=== PATIENT | female | born 1970 | race Caucasian/White ===

== ENCOUNTER 2023-12-07 14:41 | Emergency (ER) | payer BC, SELFPAY ==
[2023-12-07 14:58] VITALS: BP 126/53; PULSE 68; RESP 22; TEMP 36.7; O2SAT 94; BMI 45.3
--- NOTE | 2023-12-07 15:10 | XR_ITS ---
PROCEDURE INFORMATION: Exam: XR Left Foot Exam date and time: 12/07/2023 3:04 PM Age: 53 years old Clinical indication: Pain; Foot; Left; Patient HX: Stubbed little toe; Additional info: Injury TECHNIQUE: Imaging protocol: Radiologic exam of the left foot. Views: 1 or 2 views. Total images: 2 COMPARISON: No relevant prior studies available. FINDINGS: Bones/joints: Acute mildly displaced oblique fracture to the shaft of the proximal phalanx of the 5th toe. Mild angulation of the fracture site. No intra-articular extension or joint dislocation. No concerning bone lesions. Small calcaneal enthesophytes at the insertion of the Achilles tendon and plantar fascia. Corticated ossicle distal to the lateral malleolus. Mild degenerative changes of the tarsal articulations. Soft tissues: Soft tissue swelling 5th toe and lateral forefoot. IMPRESSION: Acute fracture proximal phalanx left 5th toe.
--- NOTE | 2023-12-07 15:19 | EXP.UTC ---
Discharge Plan Disposition Patient Disposition: Home, Self-Care Condition: Good Prescriptions Prescriptions: New ibuprofen 800 mg tablet 800 mg PO Q8H PRN (Reason: pain) Qty: 30 0RF No Action atorvastatin 10 mg Tablet 10 mg PO DAILY losartan 25 mg Tablet 25 mg PO DAILY sertraline 25 mg Tablet 25 mg PO DAILY hydroxyzine HCl 10 mg Tablet 10 mg PO DAILY Referrals Follow up/Referrals: Shirley Clement APRN [Primary Care Provider] - See instructions Activity Restrictions/Add. Instructions Additional Instructions/Restrictions: Wear boot when up walking. Call here at the [facility] [phone] for x-ray results in the am. Take medication as prescribed. Clinical Impressions Clinical Impression: Acute pain of left foot Stand Alone Forms Stand Alone Forms: Work/School Release Instructions Patient Instructions: DI for Foot Pain Print Language Print Language: Icelandic Discharge ED Provider: Stacey Stanton [facility] [place] General Stated complaint: dislocated toe on left foot, cough Mode of Arrival: Ambulatory Source of Information: Patient Time Seen by Provider: 12/07/23 15:18 Description of Symptoms (Recalled from Triage Doc. by RN): LEFT PINKY TOE BRUISED AND SWOLLEN, PAINFUL HEENT Symptoms (Recalled from RN notes): No Resp Symptoms (Recalled from RN notes): No Skin Symptoms (Recalled from RN notes): No MS Symptoms (Recalled from RN notes): Yes Functional Status (Recalled from RN notes): HURTS TO WALK History of Present Illness Provider Complaint: Pt reports that hit the left pinky toe and foot on the door jam. She reports that family member pulled on toe to try it back in place. She states that she can barely walk on her left foot due to the pain. Related Data Home Medications ?Medication ?Instructions ?Recorded ?Confirmed atorvastatin 10 mg tablet 10 mg PO DAILY 12/07/23 12/07/23 hydroxyzine HCl 10 mg tablet 10 mg PO DAILY 12/07/23 12/07/23 losartan 25 mg tablet 25 mg PO DAILY 12/07/23 12/07/23 sertraline 25 mg tablet 25 mg PO DAILY 12/07/23 12/07/23 Previous Rx's ?Medication ?Instructions ?Recorded ibuprofen 800 mg tablet 800 mg PO Q8H PRN pain #30 tabs 12/07/23 Allergies Allergy/AdvReac Type Severity Reaction Status Date / Time Penicillins Allergy Unknown Verified 12/07/23 15:02 allergy reaction Worker's Comp Is this a Worker's Comp case?: No [facility] Disclaimer: The information contained in this section may have been updated after the patient was seen, as this information can be updated by other users. Medical History (Updated 12/07/23 @ 16:31 by Stacey Stanton APRN) GERD (gastroesophageal reflux disease) Depression Anxiety Asthma Hypertension COPD (chronic obstructive pulmonary disease) Social History Smoking Status: Current every day smoker alcohol intake: current alcohol intake frequency: holidays/special occasions only current occupational status: employed Travel in the last 8 weeks: None ROS Obtained: Yes All systems reviewed & no additional complaints except as documented Constitutional Constitutional: Reports system reviewed and no additional complaints, except as documented Eyes Eyes: Reports system reviewed and no additional complaints, except as documented ENT Ears, Nose, Mouth, and Throat: Reports system reviewed and no additional complaints, except as documented Cardiovascular Cardiovascular: Reports system reviewed and no additional complaints, except as documented Respiratory Respiratory: Reports system reviewed and no additional complaints, except as documented Gastrointestinal Gastrointestingal: Reports system reviewed and no additional complaints, except as documented Genitourinary Female Genitourinary: Reports system reviewed and no additional complaints, except as documented Musculoskeletal Musculoskeletal: Reports system reviewed and no additional complaints, except as documented, Reports abnormal gait, Reports deformity and Reports joint swelling Integumentary/Breasts Skin/Breast: Reports system reviewed and no additional complaints, except as documented Comments: bruising of left pinky toe and foot Neurologic Neurologic: Reports system reviewed and no additional complaints, except as documented and Reports abnormal gait Endocrine Endocrine: Reports system reviewed and no additional complaints, except as documented Hematologic/Lymphatic Henatologic/Lymphatic: Reports system reviewed and no additional complaints, except as documented Allergic/Immunologic Allergic/Immunologic: Reports system reviewed and no additional complaints, except as documented Physical Exam General General appearance: alert and in no apparent distress Head Head exam: atraumatic and normocephalic Eye Eye exam: Present normal appearance ENT ENT exam: Present normal exam and normal oropharynx Neck Neck exam: Present normal inspection Chest Chest inspection: Present normal inspection and symmetric chest wall rise Respiratory Respiratory exam: Present normal lung sounds bilaterally Cardiovascular Cardiovascular exam: Present regular rate and normal rhythm Abdominal Exam Abdominal exam: Present soft Extremities Exam Extremities exam: Present tenderness and normal capillary refill Expanded Lower Extremity Exam Left: Hip/Pelvis exam: Present normal inspection Upper leg exam: Present normal inspection Knee exam: Present normal inspection Lower leg exam: Present normal inspection Foot/toe exam: Present tenderness, swelling, ecchymosis and deformity Top foot image: 1. toe appears to be turned outward away from other toes with purple/pink/red bruising. 2. bruising and swelling noted Neurovascular/Tendon exam: Present normal capillary refill Gait: observed and limited by pain Back Exam Back exam: Present normal inspection Neurological Exam Neurological exam: Present alert and oriented X3 Psychiatric Psychiatric exam: Present normal affect and normal mood Skin Skin exam: Present warm, dry and intact Lymphatic Lymphatic Findings: no adenopathy Medical Decision Making Medical Records Screening: Per USPSTF and CDC recommendations, given the prevalence of disease in our region, it is our hospital?s policy to screen for HIV and viral Hepatitis for all patients aged 18 and over and those with ongoing risk factors. Brian Inquiry Pt receiving controlled substance: No Brian was queried for this patient: No Vital Signs: 12/07/23 14:58 Temperature 98.1 F Temperature Source Oral Pulse Rate [Left Radial] 68 Respiratory Rate 22 Blood Pressure [Left Arm] 126/53 L Blood Pressure Mean [Left Arm] 77 02 Sat by Pulse Oximetry 94 L Orders (Tests/Meds): ORDERS Category Date Time Status Foot XR left 2 views [XR foot LT 2V] Stat Exams 12/07/23 15:10 Taken
[2023-12-07 16:38] VITALS: BP 126/53; PULSE 68; RESP 22; TEMP 36.7
== END 2023-12-07 16:39 | disposition home or self-care (01) ==
PROVIDERS: Emergency Provider Nurse Practitioner Family; PCP Family Medicine
DX: M79.672 Pain in left foot (principal)
CPT/HCPCS: 73620; 99213; G0381

== ENCOUNTER 2024-08-27 02:12 | Emergency (ER) | payer BC, SELFPAY ==
--- OUTSIDE RECORDS SUMMARY | 2024-07-16 06:30 | XMS_ITS ---
Author Organization [facility] Address [address] [place] [address] Care Team Providers Care City Alderman Name Role Phone Nidhi Rocha Unavailable [phone] Allergies Allergen (clinical drug ingredient) Drug/Non Drug Allergy documented on EMR Reaction Allergy Type Onset Date Status Penicillin unknown Drug Allergy Active REASON FOR VISIT Not Feeling Well, Patient presents today with chest pain and nausea and stomach cramping since lastnight Medications Medication SIG (Take, Route, Frequency, Duration) Notes Start Date End Date Status Azithromycin 250 MG 2 tablets on the first day, then 1 tablet daily for 4 days orally once a day for 5 day(s) 02/27/2019 Not-Taking Coricidin HBP Congestion/Cough 10-200 MG 2 cap(s) orally tid for 5 day(s) 02/27/2019 Not-Taking Losartan Potassium *Please revie w and pick correct strength-formulati on from Medispan options. If intended option is not shown, discontinue and re-order from Quick Search* Active ProAir HFA 108 (90 Base) MCG/ACT 1 -2 puffs as needed Inhalation 6 hrs for 30 days 03/06/2022 Not-Taking predniSONE 20 MG 2 tabs orally once a day for 5 day(s) 02/27/2019 Not-Taking Promethazine-DM 6.25-15 MG/5ML 5 - 10 ml as needed Orally every 6 hrs 03/06/2022 Not-Taking ProAir HFA *Please review a nd pick correct strength-formulati on from Medispan options. If intended option is not shown, discontinue and re-order from Quick Search* Not-Taking hydrOXYzine HCl *Please review a nd pick correct strength-formulati on from Medispan options. If intended option is not shown, discontinue and re-order from Quick Search* Not-Taking Albuterol Sulfate (2.5 MG/3ML) 0.083% 3 mL as needed Inhalation every 6 hrs for 30 days 11/01/2022 Not-Taking Albuterol Sulfate HFA 108 (90 Base) MCG/ACT 1 puff as needed Inhalation every 4 hrs for 30 days 11/01/2022 Active Social History Tobacco Use: Social History Observation Description Date Details (start date - stop date) Current Smoker NA - NA Tobacco Control (Standard) Question Answer Notes Tobacco use: Current smoker How often do you smoke cigarettes? Every day Are you interested in quitting? Thinking about q uitting Additional Findings: Tobacco user e-cigarette Vital Signs Temperature 97.2 degrees Fahrenheit 07/17/19 25 Respiratory Rate 18 /min 07/16/2024 Blood pressure systolic 128 mm Hg 07/17/19 25 Blood pressure diastolic 90 mm Hg 025 Height 064 in 07/16/2024 Weight 0235 lbs 07/16/2024 BMI 40.33 kg/m2 07/16/2024 Oximetry 97 07/16/2024 Encounters Encounter Location Date Provider Diagnosis [address] [id number] 07/16/2024 Nidhi Rocha Chest tightness R07.89 and Shortness of breath R06.02 Assessments Encounter Date Diagnosis (ICD Code) Assessment Notes Treatment Notes Treatment Clinical Notes Section Notes 07/16/2024 Chest tightness (ICD-10 - R07.89) 07/16/2024 Shortness of breath (ICD-10 - R06.02) Shortness of Breath: Care Instructions material was published 07/16/2024 Other Advised to go [facility] ER immediatly for evaluation of symptoms. She verbalized understanding, but does not give definite answer. Advised of the potential implications of avoiding emergency care, including . She verbalized understanding. She requested work note. States that she drove herself here today. Refuses ambulance transportation to nearest ED. Refused to allow me to contact a family or friend for transportation. Patient walked out of clinic after completion of visit. Plan Of Treatment Treatment Notes Assessment Notes Shortness of breath Shortness of Breath: Care Instructions material was published Other Advised to go to [facility] ER immediatly for evaluation of symptoms. She verbalized understanding, but does not give definite answer. Advised of the potential implications of avoiding emergency care, including . She verbalized understanding. She requested work note. States that she drove herself here today. Refuses ambulance transportation to nearest ED. Refused to allow me to contact a family or friend for transportation. Patient walked out of clinic after completion of visit. Next Appt Details Follow Up: Follow up in 3 we eks,As Needed, Reason: Progress Notes * Dilia LEALDOB: [birth year] (54 yo F)Acc No.[id number]:07/16/2024 Progress Notes Patient: Dilia BELL Provider: Nita Rocha APRN :1970 A ge:54 Y S ex:Female Date:07/16/2024 External Visit ID:[id number] 1 Address:[address] [place] [address], [id number] Pcp:Rosina Robertson Subjective: * Chief Complaints: * 1 . Not Feeling Well. 2. Patient presents today with chest pain and nausea and stomach cramping since last night. * HPI: C ardiovascular: 54 year old W/F presents with c/o chest tightness, abdominal cramping, and nausea that started last night. Denies chest pain, SOA, and/or lighthededness/dizziness. Admits that she has had similar symptoms before and the cause was hypertension. * ROS: C ONSTITUTIONAL: no c hills. n o f atigue. b sofia aches y es.?no f ever. g eneral malaise y es. R ESPIRATORY: no s putum. n o w heezing. n o s tridor.?no p ain, c hest tightness. n o h emoptysis. S hortness of breath y es.?dyspnea y es. n o c ough. G ASTROENTEROLOGY: pain y es. n ausea y es. n o v omiting.?no d iarrhea. c onstipation y es. c ramping y es. * Medical History: H [place], Anxiety, COPD per pt, work related-resolved, Hyperlipidemia. * Surgical History: t nicky 1990. * Hospitalization/Major Diagno stic Procedure: D enies Past Hospitalization. * Family History: F ather: alive, healthy. M other: alive, healthy . S iblings: alive. C monica: alive. 3 sister(s) - healthy. 1 son(s) - healthy. . * Social History: G eneral: . v apes x 1.5 month. S igns of Abuse or Neglect: no. .: Are you a: current smoker. Occupation: [employer]. T obacco Use: T obacco Control (Standard) T obacco use: C urrent smoker, H ow often do you smoke cigarettes? E very day, A re you interested in quitting? T hinking about quitting, A dditional Findings: Tobacco user e -cigarette. * Medications: T aking Losartan Potassium , Notes to Pharmacist: *Please review and pick correct strength-formulation from Medispan options. If intended option is not shown, discontinue and re-order from Quick Search*, Taking Albuterol Sulfate HFA 108 (90 Base) MCG/ACT Aerosol Solution 1 puff as needed Inhalation every 4 hrs , Not- Taking ProAir HFA 108 (90 Base) MCG/ACT Aerosol Solution 1 -2 puffs as needed Inhalation 6 hrs , Not-Taking Albuterol Sulfate (2.5 MG/3ML) 0.083% Nebulization Solution 3 mL as needed Inhalation every 6 hrs , Not-Taking ProAir HFA , Notes to Pharmacist: *Please review and pick correct strength-formulation from [employer] options. If intended option is not shown, discontinue and re-order from Quick Search*, Not-Taking hydrOXYzine HCl , Notes to Pharmacist: *Please review and pick correct strength-formulation from Medispan options. If intended option is not shown, discontinue and re-order from Quick Search*, Not-Taking Promethazine-DM 6.25-15 MG/5ML Syrup 5 - 10 ml as needed Orally every 6 hrs , Not-Taking Azithromycin 250 MG Tablet 2 tablets on the first day, then 1 tablet daily for 4 days orally once a day , Not-Taking Coricidin HBP Congestion/Cough 10-200 MG Capsule 2 cap(s) orally tid , Not-Taking predniSONE 20 MG Tablet 2 tabs orally once a day , Medication List reviewed and reconciled with the patient * Allergies: P enicillin: unknown - Allergy. Objective: * Vitals: T emp:97.2, RR:18, BP:128/90, Pain (at time of visit):7/10, LNMP: stud setter, Ht: 064, Wt: 0235, BMI:40.33, Pulse Ox:97. * Examination: F ocused Exam: GENERAL: a lert and oriented x 4, no acute distress, dress appropriate for the environment & temp, well-groomed, appears well. HEAD: s ymmetrical facial features, normocephalic. EYES: c onjunctiva pink w/o inflammation or pallor, sclera white, PERRLA, nystagmus absent, pupil size normal, no discharge. RESPIRATORY: b reath sounds clear throughout, respiration even and unlabored. CARDIO: S 1 & S2 single sounds, no murmurs, gallops, rubs, or clicks, RRR. Assessment: * Assessment: 1. C hest tightness - R07.89 (Primary) 2 . S hortness of breath - R06.02? Plan: * Treatment: 2. O thers Notes: Advised to go to local ER immediatly for evaluation of symptoms. She verbalized understanding, but does not give definite answer. Advised of the potential implications of avoiding emergency care, including . She verbalized understanding. She requested work note. States that she drove herself here today. Refuses ambulance transportation to nearest ED. Refused to allow me to contact a family or friend for transportation. Patient walked out of clinic after completion of visit. ? * Procedure Codes: C DENISER Sending to Test Rack Operator for Code Review * Follow Up: F radha up in 3 weeks,As Needed * Billing Information: * Visit Code: * Procedure Codes: VISUAL SUPERVISOR Sending to Test Rack Operator for Code Review. Care Plan Details* Images * 07.16.2024 ID [email or web address] consent to treat * Sign off status: Completed true * Provider: Nita Rocha APRN Date: 0 07/16/2024 Generated for Trinidad benoit/Rodríguez/[employer] on: 0 08/27/2024 01:32 AM CDT History and Physical Notes * HPI (History of Present Illness) Category Sub-Category Detail Notes Category Not es Cardiovascular 54 year old W /F presents with c/o chest tightness, abdominal cramping, and nausea that started last night. Denies chest pain, SOA, and/or lighthededness/dizziness. Admits that she has had similar symptoms before and the cause was hypertension. Examination Category Sub-Category Detail Notes Category Not es Focused Exam HEAD: symmetrical facial features, normocephalic EYES: conjunctiva pink w/o inflammation or pallor, sclera white, PERRLA, nystagmus absent, pupil size normal, no discharge RESPIRATORY: breath sounds clear throughout, respiration even and unlabored GENERAL: alert and oriented x 4, no acute distress, dress appropriate for the environment & temp, well-groomed, appears well CARDIO: S1 & S2 single sound s, no murmurs, gallops, rubs, or clicks, RRR
[2024-08-27] VITALS (7 sets, daily range): BP systolic 160–192; BP diastolic 75–105; PULSE 73–96; RESP 18–20; TEMP 36.7–36.8; O2SAT 75–97; BMI 36.9
--- OUTSIDE RECORDS SUMMARY | 2024-08-27 02:33 | XMS_ITS | Patient Health Record ---
Author Organization [facility] Address [address] [place] [address] Care Team Providers Care Sales Support Representative Name Role Phone Nidhi Rocha Unavailable [phone] Allergies Allergen (clinical drug ingredient) Drug/Non Drug Allergy documented on EMR Reaction Allergy Type Onset Date Status Penicillin unknown Drug Allergy Active Reason For Referral No Information Medications Medication SIG (Take, Route, Frequency, Duration) Notes Start Date End Date Status Promethazine-DM 6.25-15 MG/5ML 5 - 10 ml as needed Orally every 6 hrs 03/06/2022 Not-Taking Azithromycin 250 MG 2 tablets on the [...] a day for 5 day(s) 02/27/2019 Not-Taking ProAir HFA *Please review a nd [...] 4 hrs for 30 days 11/01/2022 Active Immunizations Vaccine Route Administration Date Status Comme nts z9 FluBLOK Quad 0.5mL PFS (0.5mL Admin) 18 y/o & older Unknown 02/27/2019 Administered z2022 Fluzone Quad PFS (0.5m L Admin) 6 months & older Unknown 03/06/2022 Refused Social History Tobacco Use: Social History Observation Description Date Details (start date - stop date) Current Smoker NA - NA Tobacco Control (Standard) Question Answer Notes Tobacco use: Current smoker How often do you smoke cigarettes? Every day Are you interested in quitting? Thinking about q uitting Additional Findings: Tobacco user e-cigarette Problems Problem Type SNOMED Code ICD Code Onset Dates Problem Status W/U Status Risk Notes Problem Obesity (018648057) Obesity (BMI 30-39.9) (E66.9) Active confirmed Problem Body mass index 40+ - morbidly obese (281412996) BMI 40.0-44.9, adult (Z68.41) Active confirmed Problem Morbid obesity (236586700) Severe obesity (BMI >= 40) (E66.01) Active confirmed Problem Essential hypertension (25841745) Elevated blood pressure reading in office with diagnosis of hypertension (I10) Active confirmed Vital Signs Temperature 97.2 degrees Fahrenheit 07/16/2024 Respiratory Rate 18 /min 07/16/2024 Oximetry 97 07/16/2024 Blood pressure diastolic 90 mm Hg 07/16/2024 Height 064 in 07/16/2024 Blood pressure systolic 128 mm Hg 07/16/2024 Weight 0235 lbs 07/16/2024 BMI 40.33 kg/m2 07/16/2024 Encounters Encounter Location Date Provider Diagnosis [address] [phone] 07/16/2024 Nidhi Rocha Chest tightness R07.89 and Shortness of breath R06.02 Assessments Encounter Date Diagnosis (ICD Code) Assessment Notes Treatment Notes Treatment Clinical Notes Section Notes 07/16/2024 Chest tightness (ICD-10 - R07.89) 07/16/2024 Shortness of breath (ICD-10 - R06.02) Shortness of Breath: Care Instructions material was published 07/16/2024 Other Advised to go t o local ER immediatly for evaluation of symptoms. [...] after completion of visit. Plan Of Treatment Pending Test Test Name Order Date Lipid Panel (IH) 11/24/2016 BLOOD GLUCOSE (Glucometer) Screening() 11/24/2016 Insurance Providers Payer Name Payer Address Payer Phone Subscriber Number Group Number Insured Name Patient Relationship to Insured Coverage Start Date Coverage End Date [facility] [address] [place] [address] [id number] Dilia Borja Self - patient is the insured Medications Administered Medication Instructions Date of Administration Dosage Notes dexAMETHasone Sodium Phosphate 11/01/2022 8 mg Kenalog-40 11/01/2022 40 mg Medical (General) History Medical History History ICD Code HTN Anxiety COPD per pt, work related-resolved Hyperlipidemia Surgical History Surgery Date(Month/Year) tubal 1990 Hospitalization History Reason Date(Month/Year)
--- NOTE | 2024-08-27 02:36 | CT_ITS ---
PROCEDURE INFORMATION: Exam: CT Abdomen And Pelvis With Contrast Exam date and time: 08/27/2024 3:48 AM Age: 54 years old Clinical indication: Abdominal pain; Additional info: S/P ccy abd pain vomiting TECHNIQUE: Imaging protocol: Computed tomography of the abdomen and pelvis with contrast. 3D rendering (Not supervised by radiologist): MIP and/or 3D reconstructed images were created by the technologist. Radiation optimization: All CT scans at this facility use at least one of these dose optimization techniques: automated exposure control; mA and/or kV adjustment per patient size (includes targeted exams where dose is matched to clinical indication); or iterative reconstruction. Contrast material: ISOVUE; Contrast volume: 70 ml; Contrast route: IV; COMPARISON: CT ANGIO CHEST PE PROTOCOL 08/27/2024 3:48 AM FINDINGS: Liver: Mild edema is seen in the maday hepatis. Gallbladder and biliary ducts: Cholecystectomy. Pancreas: Normal. No ductal dilation. Spleen: Normal. No splenomegaly. Adrenal glands: Normal. No mass. Kidneys and ureters: Normal. No hydronephrosis. Stomach and bowel: The left colon is devoid of stool although no colonic wall thickening or inflammation is noted. Appendix: No evidence of appendicitis. Intraperitoneal space: Unremarkable. No free air. No significant fluid collection. Vasculature: Unremarkable. No abdominal aortic aneurysm. Lymph nodes: Unremarkable. No enlarged lymph nodes. Urinary bladder: Unremarkable as visualized. Reproductive: Unremarkable as visualized. Bones/joints: Unremarkable. No acute fracture. Soft tissues: Postsurgical changes from recent cholecystectomy are noted some subcutaneous air and edema is seen in the periumbilical area. IMPRESSION: Postsurgical changes following cholecystectomy. No acute process identified. No ileus or obstruction present.
--- NOTE | 2024-08-27 02:37 | CT_ITS ---
PROCEDURE INFORMATION: Exam: CTA Chest With Contrast Exam date and time: 08/27/2024 3:48 AM Age: 54 years old Clinical indication: Other: Borderline lypoxia; Additional info: 14h post op w/ borderline hypoxia TECHNIQUE: Imaging protocol: Computed tomographic angiography of the chest with contrast. Exam focused on the arteries. 3D rendering (Not supervised by radiologist): MIP and/or 3D reconstructed images were created by the technologist. Radiation optimization: All CT scans at this facility use at least one of these dose optimization techniques: automated exposure control; mA and/or kV adjustment per patient size (includes targeted exams where dose is matched to clinical indication); or iterative reconstruction. Contrast material: ISOVUE; Contrast volume: 70 ml; Contrast route: INTRAVENOUS (IV); COMPARISON: CT ABDOMEN PELVIS W CON 08/27/2024 3:48 AM FINDINGS: Pulmonary arteries: Normal. No pulmonary emboli. Aorta: Unremarkable. No aortic aneurysm. No aortic dissection. Lungs: Unremarkable. No consolidation. No masses. Pleural spaces: Unremarkable. No pneumothorax. No pleural effusion. Heart: No coronary calcification is noted. . No cardiomegaly. No pericardial effusion. Lymph nodes: Unremarkable. No enlarged lymph nodes. Adrenal glands: 1.3 cm left adrenal nodule does not meet criteria for adenoma on this exam. Bones/joints: Unremarkable. No acute fracture. Soft tissues: Unremarkable. IMPRESSION: 1. No evidence of pulmonary embolus or other acute process. 2. 1.3 cm left adrenal nodule does not meet criteria for adenoma. Comparison with prior studies if available would be helpful alternatively MRI is the best method for further characterization.
--- NOTE | 2024-08-27 02:40 | HMH.EDGENADL ---
Discharge Plan Disposition Patient Disposition: Home, Self-Care Condition: Good Prescriptions Prescriptions: No Action atorvastatin 10 mg Tablet 10 mg PO DAILY losartan 25 mg Tablet 25 mg PO DAILY sertraline 25 mg Tablet 25 mg PO DAILY hydroxyzine HCl 10 mg Tablet 10 mg PO DAILY ibuprofen 800 mg tablet 800 mg PO Q8H PRN (Reason: pain) Qty: 30 0RF Referrals Follow up/Referrals: Shirley Clement APRN [Primary Care Provider, Medical] - See instructions Activity Restrictions/Add. Instructions Additional Instructions/Restrictions: You were evaluated in the ER and are believed to be appropriate for discharge at this time. Continue taking all home postoperative medications as prescribed. You have already received your daily dose of blood pressure medication, restart your blood pressure medication tomorrow. Call your surgeon and tell them about the complications you experienced in your visit to the ER, they may want closer follow-up. Also make an appointment with your primary care doctor for reevaluation. Return to the ER with any new, worsening, or otherwise concerning symptoms. Clinical Impressions Clinical Impression: Vomiting, Headache Print Language Print Language: Slovak Discharge ED Provider: Grover Sinha General Adult HPI General Chief complaint: Nausea/Vomiting/Diarrhea Stated complaint: gall bladder surgery 08/26, vomiting, HARRIS Time Seen by Provider: 08/27/24 02:15 Mode of Arrival: Ambulatory Source of Information: Patient Description of Symptoms (Recalled from ER Triage Doc. by RN): patient has been vomiting since noon yesterday. Has taken zofran with no relief. Patient also states she had her gallbladder taken out yesterday. History of Present Illness HPI narrative: 54-year-old female presents to the ER with nausea, vomiting, abdominal pain, headache. Patient reports she had her gallbladder taken out yesterday, review of the records she provided from her cholecystectomy at [facility] demonstrate the procedure was around noon and patient reports after the procedure she went home, took a nap, and when she woke up she was having vomiting. She has been vomiting for approximately 12 hours. She states she has vomited at least 8-10 times and anytime she tries to take anything by mouth she immediately vomits. She states she has never had any adverse reactions to anesthesia. She states her abdomen is sore from the surgery and this worsens vomiting. She reports that the surgeon told her her gallbladder was stuck to things inside . Surgery was laparoscopic. Patient reports she took a pain medication (Percocet) as well as Zofran prior to arrival without improvement of symptoms. She states she has a bad headache across the front of her head through her temples that she has had since after surgery as well. She was also borderline hypoxic with oxygen saturations between 90 and 94% on room air, she states she has no heart or lung problems and has never required oxygen. She was under general anesthesia for her procedure. No fevers or chills, no chest pain, she reports she does not feel short of breath, no diarrhea or constipation, no numbness, tingling, or weakness, no vision changes or hearing changes. No photophobia or phonophobia. Related Data Home Medications ?Medication ?Instructions ?Recorded ?Confirmed atorvastatin 10 mg tablet 10 mg PO DAILY 12/07/23 12/07/23 hydroxyzine HCl 10 mg tablet 10 mg PO DAILY 12/07/23 12/07/23 losartan 25 mg tablet 25 mg PO DAILY 12/07/23 12/07/23 sertraline 25 mg tablet 25 mg PO DAILY 12/07/23 12/07/23 Previous Rx's ?Medication ?Instructions ?Recorded ibuprofen 800 mg tablet 800 mg PO Q8H PRN pain #30 tabs 12/07/23 Allergies Allergy/AdvReac Type Severity Reaction Status Date / Time Penicillins Allergy Unknown Verified 12/07/23 15:02 allergy reaction [facility] Disclaimer: The information contained in this section may have been updated after the patient was seen, as this information can be updated by other users. Medical History (Updated 08/27/24 @ 05:36 by Grover Sinha MD) GERD (gastroesophageal reflux disease) Depression Anxiety Asthma Hypertension COPD (chronic obstructive pulmonary disease) Social History (Updated 12/07/23 @ 16:31 by Stacey Stanton APRN) Smoking Status: Current every day smoker alcohol intake: current alcohol intake frequency: holidays/special occasions only current occupational status: employed Travel in the last 8 weeks?: None Have you lived/traveled outside [place] in past 30 days?: No Contact w/someone who lives/traveled outside [place] past 30 days?: No Exposure to someone with infectious disease in past 14 days?: No Do you have a fever (greater than 100.4 F or 38 C)?: No Have you tested positive for COVID-19?: No Exposed to someone with COVID-19 in past 14 days?: No Do you have a sore throat?: No Do you have a cough?: No Do you have any weakness?: No Do you have any diarrhea?: No Are you experiencing any unusual bleeding?: No Do you have any muscle aches/pain?: No Do you have any abdominal pain?: No Are you experiencing loss of taste or smell?: No ROS Obtained: Yes Systems reviewed as appropriate & no additional complaints except as documented Per HPI Physical Exam General General appearance: alert Comment: Ill-appearing but nontoxic Head Head exam: atraumatic and normocephalic Eye Eye exam: Present PERRL and EOMI ENT ENT exam: Present mucous membranes moist Neck Neck exam: Present normal inspection and full ROM Chest Chest inspection: Present symmetric chest wall rise; Absent tenderness Respiratory Respiratory exam: Present normal lung sounds bilaterally; Absent respiratory distress, wheezes or stridor Cardiovascular Cardiovascular exam: Present regular rate and normal rhythm Abdominal Exam Abdominal exam: Present soft and tenderness (Diffuse but worse in the right upper quadrant); Absent distention, guarding or rebound Comment: Laparoscopic cholecystectomy surgical incisions clean, dry, intact Extremities Exam Extremities exam: Present full ROM; Absent edema Neurological Exam Neurological exam: Present alert, oriented X3, CN II-XII intact and normal gait; Absent motor sensory deficit Psychiatric Psychiatric exam: Present normal affect and normal mood Skin Skin exam: Present warm and dry Medical Decision Making Medical Records Medical records reviewed: Yes I reviewed the patient's medical records. Screening: Per USPSTF and CDC recommendations, given the prevalence of disease in our region, it is our hospital?s policy to screen for HIV and viral Hepatitis for all patients aged 18 and over and those with ongoing risk factors. MR Comment: See HPI Brian Inquiry Pt receiving controlled substance: No Vital Signs: 08/27/24 02:20 08/27/24 02:30 08/27/24 03:30 Temperature 98.2 F Temperature Source Oral Pulse Rate 81 78 Pulse Rate [Left] 89 Respiratory Rate 18 Blood Pressure 182/87 H 190/99 H Blood Pressure [Right Arm] 192/88 H Blood Pressure Mean [Right Arm] 122 Blood Pressure Source [Right Arm] Automatic Cuff Blood Pressure Position [Right Arm] Sitting 02 Sat by Pulse Oximetry 95 92 L 95 Oxygen Delivery Method Room Air Lab Data Lab Results 08/27/24 02:50: WBC 12.4 H, RBC 5.16, Hgb 13.3, Hct 43.5, MCV 84.3, MCH 25.8 L, MCHC 30.6 L, RDW 14.6, Plt Count 373, MPV 9.2, Neut % (Auto) 83.0 H, Lymph % (Auto) 12.1, Parker % (Auto) 4.3, Eos % (Auto) 0.0 L, Baso % (Auto) 0.2, Neut # (Auto) 10.3 H, Lymph # (Auto) 1.5, Parker # (Auto) 0.5, Eos # (Auto) 0.0, Baso # (Auto) 0.0, PT 10.6, INR 0.95, Sodium 140, Potassium 4.2, Chloride 99, Carbon Dioxide 31 H, Anion Gap 14.2, BUN 10, Creatinine 0.70, Estimated Creat Clear 144, Estimated GFR 87, Est GFR ( Amer) 105, Glucose 125 H, Lactate 0.6 L, Calcium 9.7, Total Bilirubin 0.5, AST 43 H, ALT 35, Alkaline Phosphatase 92, Troponin I < 0.01, Total Protein 8.1, Albumin 4.7, Globulin 3.4 H, Albumin/Globulin Ratio 1.4, Lipase 32 08/27/24 02:50 08/27/24 02:50 Orders (Tests/Meds): ED MEDICATIONS Discontinued Medications Generic Name Dose Route Start Last Admin Trade Name Freq PRN Reason Stop Dose Admin Acetaminophen 500 mg 08/27/24 04:34 08/27/24 04:50 Acetaminophen 500mg Tab PO 08/27/24 04:35 500 mg ONCE ONE Administration Droperidol 2.5 mg 08/27/24 02:45 08/27/24 02:58 Droperidol 5mg/2ml Vial IV 08/27/24 02:46 2.5 mg ONCE ONE Administration Lactated Ringer's 1,000 mls @ 999 mls/hr 08/27/24 02:45 08/27/24 02:58 Lactated Ringer's 1000 Ml Bag IV 08/27/24 03:45 999 mls/hr .Q1H1M ONE Administration Iopamidol 70 ml 08/27/24 03:59 08/27/24 04:00 Iopamidol-370 (76%);100ml Bottle IV 08/27/24 04:00 70 ml ONCE ONE Administration Irbesartan 37.5 mg 08/27/24 04:35 08/27/24 05:03 Irbesartan 75mg Tablet PO 08/27/24 04:36 37.5 mg ONCE ONE Administration Ketorolac Tromethamine 15 mg 08/27/24 04:34 08/27/24 04:49 Ketorolac 30mg/Ml Vial IV 08/27/24 04:35 15 mg ONCE ONE Administration Sodium Chloride 50 ml 08/27/24 03:59 08/27/24 04:00 0.9 % Sodium Chloride 50 Ml Vial IV 08/27/24 04:00 50 ml ONCE ONE Administration Sodium Chloride 10 ml 08/27/24 03:59 08/27/24 04:00 Sodium Chloride 0.9% 10ml Syr (Rad Only) IV 08/27/24 04:00 10 ml ONCE ONE Administration ORDERS Category Date Time Status CT abdomen pelvis w con Stat Cat Scan 08/27/24 02:[address] angio chest PE protocol Stat Cat Scan 08/27/24 02:37 Completed Complete Blood Count Auto Diff Stat Lab 08/27/24 02:50 Completed Comprehensive Metabolic Panel Stat Lab 08/27/24 02:50 Completed Lactic Acid Stat Lab 08/27/24 02:50 Completed Lipase Stat Lab 08/27/24 02:50 Completed Prothrombin Time INR Stat Lab 08/27/24 02:50 Completed Troponin I Q3H Lab 08/27/24 05:45 Ordered Troponin I Q3H Lab 08/27/24 08:45 Ordered Troponin I Stat Lab 08/27/24 02:50 Completed Medical Decision Narrative: In summary, this 54-year-old female with comorbidities described in the HPI presents to the emergency department today with nausea, vomiting, headache after cholecystectomy. On initial evaluation patient is hypertensive but otherwise hemodynamically stable, afebrile, GCS 15, no neurologic deficits, abdominal exam demonstrates tenderness with clean, dry, intact surgical incisions, no peritonitis appreciated clinically. Patient was placed on nasal cannula because she was in the low 90s on room air. Differential diagnosis includes but is not limited to atypical presentation of ACS, PE, lactic acidosis, pancreatitis, damage to surrounding structures from cholecystectomy, biliary leak, internal bleeding, considered migraine, tension headache, anesthesia side effects, I had considered the possibility of intracranial lesion such as bleed or mass but have very low suspicion for these since patient has no red flag symptoms of headache such as thunderclap onset or maximal intensity at onset, she also has no neurologic deficits or abnormalities. Based on these concerns, I ordered serum labs, CT imaging, cardiac workup. ECG personally interpreted demonstrates normal sinus rhythm, rate 78, normal axis, normal FL and QTc, no STEMI. Patient received droperidol for treatment initially. Labs personally reviewed demonstrate leukocytosis WBC 12.4, no anemia, normal platelets, PT/INR normal, CMP nonactionable, lactic 0.6, troponin undetectably low less than 0.01 reassuring against cardiac etiology. Given duration of symptoms I do not believe repeat troponins are necessary. CTA PE and CT abdomen pelvis were personally interpreted and I do not appreciate PE or evidence of aspiration, CT abdomen pelvis demonstrates postop surgical changes but I do not appreciate other acute pathology, see radiology read for final interpretation. [] On reassessment patient's blood pressure has spontaneously improved to the 170s, she reports she has not taken her losartan today. She states her headache is better but not gone, her nausea is significantly improved. Toradol, Tylenol, irbesartan dose have been administered to the patient. Losartan is not on formulary at this facility. On reassessment patient's pain has dramatically improved, she has tolerated oral intake. I took her off oxygen and she is maintaining in the low to mid 90s on room air. She ambulated around the ER without desaturation, oxygen 93% while ambulating and no shortness of breath. I believe her hypoxia earlier was likely secondary to abnormal breathing from pain. At this time patient is appropriate for discharge. I instructed her that she has already taken a dose of blood pressure medications so she does not need to double up today, but can restart her blood pressure medication tomorrow. I also instructed her to continue all home medications that she had been prescribed after surgery as directed. Instructed her to call the surgeons office for close follow-up. Patient was given instructions on symptomatic management, follow up instructions, and return precautions for the emergency department. Patient indicated understanding and was discharged in stable condition. Critical Care Critical Care Time Critical Care Time: No
--- NOTE | 2024-08-27 02:41 | ECG_ITS ---
APPROVED REPORT Exam: Resting ECG HR:78 bpm ECG Measurements Heart Rate 78 AXES WI 178 P 49 QRSd 93 QRS 81 QT 391 T 5 QTc 424 Conclusion SINUS RHYTHM NONSPECIFIC T-WAVE ABNORMALITY No STEMI Electronically signed by : ESTRELLA STARR, 08/27/2024 05:52:20
[2024-08-27 02:56] LABS: Hematocrit 43.5 % (37.0-47.0); Hemoglobin 13.3 g/dL (12.2-16.2); Immature Granulocytes % 0.4 %; Mean Corpuscular HGB Conc 30.6 g/dL (31.8-35.4); Mean Corpuscular Hemoglobin 25.8 pg (27.0-31.2); Mean Corpuscular Volume 84.3 fl (81-99); Nucleated Red Blood Cells % 0 %; Platelet Count 373 K/mm3 (142-424); Red Blood Count 5.16 M/mm3 (4.20-5.40); Red Cell Distribution Width-SD 44.8 fL; White Blood Count 12.4 K/mm3 (4.8-10.8)
[2024-08-27] MEDS: droPERidol 5MG/2ML VIAL 2.5 MG IV (02:58)
[2024-08-27] MEDS: LACTATED RINGERS 1000ML 1,000 ML 999 ML IV (02:58)
[2024-08-27 03:06] LABS: INR 0.95 (0.9-1.1); Prothrombin Time 10.6 seconds (10.1-12.5)
[2024-08-27 03:19] LABS: Lipase 32 U/L (23-300)
[2024-08-27 03:30] LABS: Chloride 99 mmol/L (98-107)
[2024-08-27 03:31] LABS: Albumin Level 4.7 g/dl (3.5-5.0); Potassium 4.2 mmoL/L (3.5-5.1); Sodium 140 mmol/L (136-145)
[2024-08-27 03:33] LABS: Blood Urea Nitrogen 10 mg/dl (7-17); Creatinine Clearance Estimated 144 mL/min (50-200); Creatinine,Serum 0.70 mg/dl (0.52-1.04); Estimated Glomerular Filt Rate 87 ml/min (>60); GFR (African American) 105 ML/MIN (>60)
[2024-08-27 03:34] LABS: Alanine Aminotransferase 35 U/L (12-78); Albumin/Globulin Ratio 1.4 (1.1-1.8); Alkaline Phosphatase 92 U/L (38-126); Anion Gap 14.2 mEq/L (5-15); Aspartate Amino Transferase 43 U/L (14-36); Bilirubin,Total 0.5 mg/dl (0.2-1.3); Calcium 9.7 mg/dl (8.4-10.2); Carbon Dioxide 31 mmol/L (22.0-30.0); Globulin 3.4 g/dL (1.3-3.2); Glucose 125 mg/dl (74-100); Total Protein,Serum 8.1 g/dl (6.3-8.2)
[2024-08-27 03:35] LABS: Troponin I < 0.01 ng/ml (0.00-0.034)
[2024-08-27] MEDS: 0.9 % SODIUM CHLORIDE 50 ML VIAL IV (04:00)
[2024-08-27] MEDS: SODIUM CHLORIDE 0.9% 10ML SYR (RAD ONLY) 10 ML IV (04:00)
[2024-08-27] MEDS: IOPAMIDOL-370 (76%);100ML BOTTLE 70 ML IV (04:00)
[2024-08-27] MEDS: KETOROLAC 30MG/ML VIAL 15 MG IV (04:49)
[2024-08-27] MEDS: ACETAMINOPHEN 500MG TAB 500 MG PO (04:50)
[2024-08-27] MEDS: IRBESARTAN 75MG TABLET 37.5 MG PO (05:03)
--- NOTE | 2024-08-27 05:45 | PC.NURSE ---
IV discontinued. Catheter tip intact. Bleeding Controlled.
== END 2024-08-27 05:46 | disposition home or self-care (01) ==
PROVIDERS: Emergency Provider Emergency Medicine; PCP Family Medicine
DX: R11.2 Nausea with vomiting, unspecified (principal); R51.9 Headache, unspecified; I10 Essential (primary) hypertension; Z90.89 Acquired absence of other organs; Z87.891 Personal history of nicotine dependence
CPT/HCPCS: 71275; 74177; 80053; 83605; 83690; 84484; 85025; 85610; 93005; 96361; 96374; 96375; 99285; J1790; J1885; J7120; Q9967